=== PATIENT | male | born 1975 | race Caucasian/White ===

== ENCOUNTER 2019-04-01 18:30 | Observation (INO) ==
[2019-04-01] MEDS ORDERED: ATIVAN IV ONE (19:08)
[2019-04-01] MEDS: M.V.I.-12 10 ML, FOLIC ACID 1 MG, MAGNESIUM SULFATE 1 GM, THIAMINE 100 MG in NS 1,000 ML IV ONE ×2 (19:35→22:02)
[2019-04-01 19:45] LABS: BASO# 0.01 X1000 (0.0-0.2); BASO% 0.1 % (0.0-0.8); HEMATOCRIT 40.7 % (42.0-52.0); HEMOGLOBIN 14.3 g/dL (14.0-18.0); IMM GRAN# 0.03 X1000 (0.0-0.04); IMM GRAN% 0.2 % (0.0-0.5); LYMPH# 0.57 X1000 (1.2-3.4); LYMPH% 4.6 % (20.5-51.1); MCH 30.6 PG (27-31); MCHC 35.1 g/dL (33-37); MCV 87.2 FL (81-99); MONO# 0.69 X1000 (0.11-0.59); MONO% 5.6 % (1.7-9.3); MPV 10.2 FL (7.4-10.4); NEUT# 11.13 X1000 (1.4-6.5); NEUT% 89.5 % (42.2-75.2); PLT 242 X1000 (130-400); RBC 4.67 XMIL (4.7-6.1); RDW 12.6 % (11.5-14.5); WBC 12.43 X1000 (4.8-10.8)
[2019-04-01 19:57] LABS: ESTIMATED GFR > 60
[2019-04-01 20:06] LABS: AGAP 30; ALBUMIN 4.7 g/dL (3.5-5.0); ALKALINE PHOSPHATASE 95 U/L (32-122); BUN 6 mg/dL (8-22); CALCIUM 9.1 mg/dL (8.8-10.2); CHLORIDE 80 mmol/L (98-107); CK PROFILE 1633 U/L (24-204); COSMO 252; CREATININE 0.6 mg/dL (0.7-1.2); GLUCOSE 151 mg/dL (70-104); GOT 60 U/L (10-34); GPT 42 U/L (10-44); SODIUM 125 mmol/L (136-145); TCO2 16 mmol/L (25-35)
[2019-04-01 20:08] LABS: POTASSIUM 2.5 mmol/L (3.5-5.1)
--- NOTE | 2019-04-01 20:08 | Diag Imaging Result Doc PS360 ---
CHEST-PORTABLE - 04/01/2019 INDICATION: etoher COMPARISON: None FINDINGS: There is mild right hemidiaphragm elevation. There is a hazy infiltrate in the right upper lobe. Heart size is borderline. No pneumothorax or pleural effusion. IMPRESSION: Faint right upper lobe infiltrate. This may represent pneumonia. Electronically signed by Devin Colindres 04/01/2019 8:06 PM
[2019-04-01] MEDS ORDERED: POTASSIUM CHLORIDE 20 MEQ/SWI 20 MEQ/100 ML IVPB ONE (20:11)
[2019-04-01] MEDS ORDERED: NS 0 ML ONE (20:14)
[2019-04-01] MEDS ORDERED: POTASSIUM CHLORIDE 20 MEQ/SWI 20 MEQ/100 ML IVPB IV ONE (20:17)
[2019-04-01 20:24] LABS: CK INDEX 0.9 (0.0-2.5); CK-MB 14.31 ng/mL (0.0-5.0)
--- NOTE | 2019-04-01 20:46 | PROVIDER DOCUMENTATION ---
This chart was entered by Edgar Matute Scribe, acting as scribe for Kenneth Wisdom MD. [id number] Abuse/Overdose - General Chief Complaint: Alcohol Withdrawal Stated Complaint: ETOH Withdrawl Time Seen by Provider: 04/01/19 19:06 Source: patient, family, EMS Allergies/Adverse Reactions: Allergies Allergy/AdvReac Type Severity Reaction Status Date / Time No Known Allergies Allergy Verified 03/29/16 18:52 Home Medications: Home Medication List Medication Instructions Recorded Confirmed Last Taken Type Chlordiazepoxide [Librium] 25 mg PO Q6H PRN PRN #2 capsule 03/29/16 Unknown Rx Lisinopril 1 tab PO DAILY 03/29/16 03/29/16 03/26/16 History - History of Present Illness-Drug/Alcohol Nature of Presenting Problem: 43 yom presents to the ed v/a EMS from binge drinking for 2 weeks. pt states taking last drink late Monday night. pt states "drinking a 5th of vodka a day" pts mother states pt has been to rehab before and was sober for a year but has since relapsed. pt states "have been falling" pt states having "shakes and sweating" pt states " feels like i have brain damage , i feel like i went to far this time." pt has hx of hypertension. pts had a gastric-bypass This episode of drinking or use began:: other (2 weeks) Severity: reports: mild Situational problems related to:: reports: N/A Psychiatric Complaints: reports: denies symptoms Associated Symptoms: reports: other (shakes/sweating). denies: diarrhea, nausea, vomiting Any injuries associated with this episode of intoxication?: No Similar Symptoms Previously?: No Recently seen or treated by another doctor?: No - Substance Abuse Substance Use: reports: alcohol - Alcohol Abuse Type and amount of last drink?: 5th of vodka Usually drinks:: binge Other alcohols?: reports: N/A - Detox/Hospitalizations Previous detox/rehab admissions?: Yes (mother states been to rehab before) Currently enrolled in a Methadone Program?: No Review of Systems - Adult - REVIEW OF SYSTEMS - ADULT Constitutional: denies: chills, fever Eyes: reports: no symptoms reported Ears, Nose, Mouth & Throat: reports: no symptoms reported Cardiovascular: denies: chest pain, syncope Respiratory: denies: cough, shortness of breath, wheezing Gastrointestinal: denies: abdominal pain, diarrhea, nausea, vomiting Genitourinary: reports: no symptoms reported Musculoskeletal: reports: no symptoms reported Integumentary: reports: no symptoms reported Neurological: reports: no symptoms reported Psychiatric: reports: alcohol/drug dependence (2 week binge drinking) Endocrine: reports: no symptoms reported Hematologic/Lymphatic: reports: no symptoms reported Allergic/Immunologic: reports: no symptoms reported All Other Systems: Reviewed and Negative Past History - Adult - PAST MEDICAL HISTORY-ADULT Review of Records: reports: Old Records Reviewed, Nursing Assessment Review, Medications Reviewed, Social history reviewed & non-contributory. Major Childhood Illnesses: reports: denies history Cardiovascular: reports: HTN Respiratory: reports: denies history Gastrointestinal: reports: denies history Obstetrical/Gynecological: reports: denies history Genitourinary: reports: denies history Musculoskeletal: reports: denies history Neurological: reports: denies history Endocrine/Immune: reports: denies history Other Conditions: reports: denies history - PRIOR SURGERIES/PROCEDURES Surgical/Procedure History: reports: gastric bypass - IMMUNIZATION STATUS Childhood Immunizations: See Nurse Assessment Flu Vaccine: See Nurse Assessment - FAMILY HISTORY Family History: reviewed, not pertinent - SOCIAL HISTORY Smoking: denies Substance Use: alcohol Alcohol Use Frequency: every day (binge drinker) Living Situation: family Physical Exam-General - PHYSICAL EXAM-ADULT Initial Vital Signs Reviewed: Yes - CONSTITUTIONAL General Appearance: appears well, alert, mild distress. negative: lethargic, slow to respond - EYES Eyes: PERRL/EOMI - HEAD, EARS, NOSE, MOUTH & THROAT HENMT: moist mucous membranes - NECK Neck: non-tender, full range of motion, supple - RESPIRATORY Respiratory: chest non-tender, lungs clear, normal breath sounds - CARDIOVASCULAR Cardiovascular: normal peripheral pulses (99), regular rate, rhythm - GASTROINTESTINAL (ABDOMEN) Abdominal Exam: normal bowel sounds, non tender, soft - LYMPHATIC Lymphatic: no adenopathy - MUSCULOSKELETAL Back Exam: no CVA tenderness Extremity: normal range of motion, non-tender, normal gait - SKIN Integumentary: normal color, normal turgor, warm/dry - NEUROLOGIC Neurologic: grossly normal - PSYCHIATRIC Psych/Mental Status: normal mood/affect, normal thought content, normal thought process, oriented x 3 Progress - PLAN OF CARE/RESULTS Progress/Plan/Lab Results: Vital Signs - 8 hr 04/01/19 18:34 04/01/19 19:36 Temperature 98.2 F Pulse Rate 99 H 104 H Respiratory Rate 30 H 23 Blood Pressure 148/83 157/73 O2 Sat by Pulse Oximetry 98 100 Laboratory Results - last 24 hr 04/01/19 04/01/19 04/01/19 19:30 19:30 19:30 WBC 12.43 H RBC 4.67 L Hgb 14.3 Hct 40.7 L MCV 87.2 MCH 30.6 MCHC 35.1 RDW Std Deviation 12.6 Plt Count 242 MPV 10.2 Immature Gran % (Auto) 0.2 Neut % (Auto) 89.5 H Lymph % (Auto) 4.6 L [place] % (Auto) 5.6 Eos % (Auto) 0.0 Baso % (Auto) 0.1 Immature Gran # (Auto) 0.03 Neut # (Auto) 11.13 H Lymph # (Auto) 0.57 L [place] # (Auto) 0.69 H Eos # (Auto) 0.00 Baso # (Auto) 0.01 Segmented Neutrophils Not Reportable Sodium 125 L Potassium 2.5 L* Chloride 80 L Carbon Dioxide 16 L Anion Gap 30 BUN 6 L Creatinine 0.6 L Estimated GFR/1.73 m2 > 60 BUN/Creatinine Ratio 10 Glucose 151 H Calculated Osmolality 252 Calcium 9.1 Total Bilirubin 1.00 AST 60 H ALT 42 Alkaline Phosphatase 95 Creatine Kinase 1633 H Creatine Kinase Index 0.9 CK-MB (CK-2) 14.31 H Total Protein 7.0 Albumin 4.7 Globulin 2.0 Albumin/Globulin Ratio 2.0 Plasma/Serum Ethyl Alc Orders Category Date Time Status CHEST-PORTABLE [RAD] Stat Exams 04/01/19 19:10 Completed ALCOHOL BLOOD Stat Lab 04/01/19 19:30 Completed CBC WITH ELECTRONIC DIFF [HEME] Stat Lab 04/01/19 19:30 Completed CK PROFILE [SP CHEM] Stat Lab 04/01/19 19:30 Completed COMPREHENSIVE METABOLIC PANEL [CHEM] Stat Lab 04/01/19 19:30 Completed TROPONIN T Stat Lab 04/01/19 19:30 Received 0.9% Sodium Chloride Inj [Ns] 100 ml Med 04/01/19 20:14 Discontinued .ROUTE As directed Lorazepam [Ativan] Med 04/01/19 19:08 Discontinued 2 mg IV NOW ONE Mvi [M.v.i.-12] 10 ml Med 04/01/19 20:00 Active Folic Acid 1 mg Magnesium Sulfate 1 gm Thiamine 100 mg 0.9% Sodium Chloride Inj [Ns] 1,000 ml IV NOW Mvi [M.v.i.-12] 10 ml Med 04/02/19 18:00 Active Folic Acid 1 mg Magnesium Sulfate 1 gm Thiamine 100 mg 0.9% Sodium Chloride Inj [Ns] 1,000 ml IV Q24H Potassium Chloride 20 Meq/Swi Med 04/01/19 20:11 Discontinued 20 meq in 100 ml .ROUTE As directed Potassium Chloride 20 Meq/Swi Med 04/01/19 20:17 Active 20 meq in 100 ml IV ONCE EKG [EKG] Routine Ther 04/01/19 19:09 Ordered Result Diagrams: 04/01/19 19:30 04/01/19 19:30 - EKG 1 Time of EKG reading by physician:: 18:48 EKG Read and Signed by:: Kenneth Wisdom Rate: 91 Rhythm: NSR [place]: normal QRS: normal MD Interval: normal ST Wave: normal Comments: minimal voltage criteria for LVH, may be normal variant - XRAY 1 XRAY Study: Chest Impression: See EMR Report (CHEST-PORTABLE - 04/01/2019 INDICATION: etoher COMPARISON: None FINDINGS: There is mild right hemidiaphragm elevation. There is a hazy infiltrate in the right upper lobe. Heart size is borderline. No pneumothorax or pleural effusion. IMPRESSION: Faint right upper lobe infiltrate. This may represent pneumonia. Electronically signed by Devin Colinrdes 04/01/2019 8:06 PM 04/01/192005 Interpreting Physician: Devin Colindres MD Dictated Date/Time: 04/01/19 2005 cc: Kenneth Wisdom MD; None,PCP) Departure - Departure Date of Disposition Decision: 04/01/19 Time of Disposition Decision: 20:45 DIAGNOSIS: Alcohol abuse, Alcohol withdrawal Disposition: ADMITTED INPATIENT 09 Certified Medical Emergency: Emergent Condition: Stable Referrals and Follow-Ups: None,PCP [Primary Care Provider] - - Critical Care Note This patient required my direct & personal management of CC.: No Attestation - Physician/ RAFIA Attestation Patient care was provided by Advanced Practice Provider:: No The physician spent face to face time with patient:: Yes Advanced Practice Provider documentation review:: Supervising physician onsite and consulted in the evaluation and care of this patient. The physician did have a face to face encounter with the patient. This chart was documented by the indicated scribe, (Edgar Matute, [place]) and accurately reflects the services I performed and decisions made by me, Kenneth Wisdom MD, as attested by the provider's signature.
[2019-04-01] MEDS ORDERED: ZOFRAN IV PRN (22:27)
[2019-04-01] MEDS: NS 1,000 ML IV SCH (22:34)
[2019-04-01] MEDS ORDERED: ATIVAN IV PRN (23:17)
[2019-04-01] MEDS: THIAMINE 100 MG in NS 50 ML IV SCH (23:55)
[2019-04-01] MEDS: LIBRIUM PO SCH (23:55)
--- NOTE | 2019-04-02 03:20 | EKG Report ---
Test Performed on : 04/01/2019 6:48:45 PM Test Reason : emboli Blood Pressure : / mmHG Vent. Rate : 091 BPM Atrial Rate : 091 BPM P-R Int : 132 ms QRS Dur : 104 ms QT Int : 376 ms P-R-T Axes : 040 -10 013 degrees QTc Int : 462 ms Normal sinus rhythm. Minimal voltage criteria for LVH, may be normal variant Borderline ECG No previous ECGs available Unconfirmed Result
[2019-04-02] MEDS: NS 1,000 ML IV SCH (05:18)
[2019-04-02] MEDS: LIBRIUM PO SCH (05:19)
[2019-04-02 06:42] LABS: INR 0.97; PROTIME 13.4 Seconds (11.0-16.0)
[2019-04-02 06:48] LABS: AGAP 17; ALBUMIN 4.5 g/dL (3.5-5.0); ALKALINE PHOSPHATASE 83 U/L (32-122); BUN 5 mg/dL (8-22); CALCIUM 9.3 mg/dL (8.8-10.2); CHLORIDE 97 mmol/L (98-107); COSMO 267; CREATININE 0.6 mg/dL (0.7-1.2); ESTIMATED GFR > 60; GLUCOSE 94 mg/dL (70-104); GOT 49 U/L (10-34); GPT 36 U/L (10-44); MAGNESIUM 2.1 mg/dL (1.5-2.7); PHOSPHORUS 1.8 mg/dL (2.7-4.5); POTASSIUM 3.4 mmol/L (3.5-5.1); SODIUM 135 mmol/L (136-145); TCO2 21 mmol/L (25-35); TOTAL PROTEIN 6.4 g/dL (6.3-8.3)
[2019-04-02] MEDS ORDERED: TYLENOL PO PRN (07:38)
[2019-04-02] MEDS ORDERED: ZOFRAN IV PRN (07:38)
[2019-04-02 08:00] VITALS: BP 152/79
[2019-04-02] MEDS ORDERED: ROCEPHIN 1 GM in NS 50 ML IV SCH (08:00)
[2019-04-02] MEDS ORDERED: POTASSIUM CHLORIDE 60 MEQ in NS 500 ML IV ONE (08:00)
[2019-04-02] MEDS ORDERED: KLOR-CON PO ONE (08:07)
[2019-04-02] MEDS: THIAMINE 100 MG in NS 50 ML IV SCH (08:53)
[2019-04-02] MEDS ORDERED: COZAAR PO SCH (09:00)
--- NOTE | 2019-04-02 09:51 | Diag Imaging Result Doc PS360 ---
EXAM: US ABDOMEN-COMPLETE HISTORY: alcohol abuse TECHNIQUE: Abdominal ultrasound COMPARISON: None. FINDINGS: Suboptimal exam due to bowel gas and patient's body habitus. Normal inferior vena cava. No aortic aneurysm. The pancreas is obscured. There is fatty infiltration of the liver. It is difficult to penetrate the posterior liver. The common bile duct measures less than 5 mm. Normal gallbladder. No stones. No wall thickening. Normal kidneys. No hydronephrosis. Spleen. No ascites. IMPRESSION: Fatty infiltration of the liver Electronically signed by Marcos Santiago 04/02/2019 9:48 AM
[2019-04-02] MEDS ORDERED: M.V.I.-12 10 ML, FOLIC ACID 1 MG, MAGNESIUM SULFATE 1 GM, THIAMINE 100 MG in NS 1,000 ML IV SCH (18:00)
[2019-04-02] MEDS ORDERED: SEROQUEL PO SCH (21:00)
--- NOTE | 2019-04-02 22:39 | HISTORY AND PHYSICAL ---
CHIEF COMPLAINT: Abdominal pain, nausea. HISTORY OF PRESENT ILLNESS: The patient is a 43-year-old male, who notes that he has a history of binge drinking. States he has been on a binge recently and felt as though he may have alcohol poisoning, was having some nausea, vomiting, abdominal pain. States he drank essentially a fifth of vodka a day. Notes that he had been sober for approximately a year, until he recently binged. States he was having shaking, sweating, and was concerned that "he may have brain damage from alcohol ingestion." ALLERGIES: No known drug allergies. MEDICATIONS: Librium, lisinopril, although he has not been taking any medications recently. REVIEW OF SYSTEMS: As noted above. Patient notes that he has had some cough, congestion. He has felt weak, tired, fatigued. Denies any fevers or chills. Denies dysuria, urinary frequency, or urgency. Denies constipation, melena, hematochezia. FAMILY HISTORY: Noncontributory. SOCIAL HISTORY: The patient obviously drinks. Denies [*]or other illicit substance use. PAST SURGICAL HISTORY: Gastric bypass. PHYSICAL EXAMINATION: VITAL SIGNS: Temperature 98 degrees, pulse 99, respiratory 30, BP 148/93. GENERAL: Patient is an obese male, who is in no current respiratory distress. He is currently awake, alert, oriented. He is in no acute respiratory distress. HEENT: Normocephalic. NECK: Supple. CARDIOVASCULAR: Regular rate. No murmurs. CHEST: Clear and unlabored. ABDOMEN: Soft, obese, nondistended, nontender. EXTREMITIES: Moves all extremities. NEUROLOGIC: No focal changes. SKIN: Warm, dry. No rash. LABORATORY: WBC is 12, hemoglobin and hematocrit 14 and 40. Glucose 151, sodium 125, potassium 2.5, carbon dioxide 16. ASSESSMENT: 1. Metabolic acidosis secondary to his vomiting. 2. Hyponatremia, likely alcohol induced. 3. Hypokalemia. 4. Chronic alcoholism with acute ingestion. 5. Obesity. 6. Hypertension. 7. Hyperglycemia. 8. Medical noncompliance. PLAN: We are going to admit patient to the hospital, place him on normal saline. He has already been given a banana bag in the ER. We are going to replace his potassium and recheck in the a.m. cc: Darian Caicedo MD
--- NOTE | 2019-04-03 13:39 | DISCHARGE SUMMARY ---
ADMISSION DATE: 04/01/2019 DISCHARGE DATE: 04/02/2019 DISCHARGE DIAGNOSIS: 1. Hyponatremia, resolved. 2. Hypokalemia, resolved. 3. Obesity. 4. Hypertension. 5. Questionable early pneumonia. 6. Medical noncompliance. 7. Chronic alcoholism. CONSULTATIONS: None. PROCEDURES: None. BRIEF HOSPITAL COURSE: The patient was admitted to the hospital, placed on normal saline, which replaced his sodium. He was given potassium, which replaced his potassium. His chest x-ray demonstrated that he may have a early pneumonia, although he appears to be symptom-free. He was admitted to the hospital. His sodium and potassium deficiencies both resolved. Symptoms resolved. He was asking to go home, stating that he felt much better. DISPOSITION: The patient will be discharged home. Did discuss with him the use of naltrexone versus Vivitrol for alcohol avoidance. He states he is not currently interested. He otherwise had an uneventful hospital course during his hospital stay. On discharge, he is awake, alert, oriented. He is in no distress. He is eating without any difficulty. He is ambulating without any difficulty and therefore he will be discharged home. cc: Darian Caicedo MD
== END 2019-04-02 11:45 | disposition home or self-care (01) ==
LOC: P.ED 18:30 → P.MEDSURG 18:30 → SUATTDRO 18:31
PROVIDERS: ATTEND Family Medicine